=== PATIENT | male | born 1940 | race Two or more races ===

== ENCOUNTER 2020-10-11 08:58 | Outpatient (CLI) | payer MEDICARE, BC | END 2020-10-11 23:59 | disposition home or self-care (01) | LOC: MSC 08:58 | PROVIDERS: ATTEND Anesthesiology | DX: M46.96 Unspecified inflammatory spondylopathy, lumbar region (principal); M51.26 Other intervertebral disc displacement, lumbar region; M54.16 Radiculopathy, lumbar region; M62.830 Muscle spasm of back; M40.299 Other kyphosis, site unspecified; Z79.891 Long term (current) use of opiate analgesic ==